=== PATIENT | male | born 1955 | race Caucasian/White ===

== ENCOUNTER → 2016-12-02 | Outpatient (CLI) | payer OTHER ==
[~2016-12-02] MED LIST: AMLODIPINE BESYL5 MG PO; ASPIRIN81 M2 PO; CLOPIDOGREL BIS75 MG PO; GABAPENTIN600 MG PO; LIPITOR40 MG PO; METOPROLOL TAR25 MG PO; MS CONTIN30 MG PO; PERCOCET; PERCOCET10 PO; PRILOSEC PO; SOTALOL AF80 M1 PO; XARELTO20 MG PO
[2016-12-02 11:21] LABS: HEMATOCRIT 38.5 % (38.0-50.0); HEMOGLOBIN 12.4 gm/dL (13.0-16.0); MEAN CELL VOLUME 87.4 FL (83-96); MEAN CORPUSCULAR HEMOGLOBIN 28.2 PG (28-34); MEAN CORPUSCULAR HGB CONC 32.2 g/dL (30-36); MEAN PLATELET VOLUME 9.7 FL (6.5-11.5); RED BLOOD COUNT 4.41 X10e (3.90-5.60); RED CELL DISTRIBUTION WIDTH 14.2 % (11.0-15.5)
[2016-12-02 11:26] LABS: URINE APPEARANCE CLEAR; URINE BILIRUBIN NEG (NEG); URINE BLOOD NEG (NEG); URINE COLOR YELLOW; URINE GLUCOSE NEG (NEG); URINE KETONE NEG (NEG); URINE LEUKOCYTE ESTERASE NEG (NEG); URINE NITRATE NEG (NEG); URINE PROTEIN NEG (NEG); URINE SPECIFIC GRAVITY 1.014 (1.003-1.035); URINE UROBILINOGEN 0.2 MG/DL (NEG)
[2016-12-02 11:45] LABS: CULTURE INDICATED? NO; URINE SOURCE CLEAN CATCH
[2016-12-02 12:15] LABS: CALCIUM SERUM 9.3 mg/dL (8.4-10.2); GLOM FILT RATE Estimated 79.8 mL/min (>60)
== END | disposition home or self-care (01) ==
LOC: CAMB 10:15
PROVIDERS: Orthopaedic Surgery
DX: Z01.812 Encounter for preprocedural laboratory examination (principal); M19.071 Primary osteoarthritis, right ankle and foot
CPT/HCPCS: 36415; 80048; 81003; 85027; 87070

== ENCOUNTER 2017-02-10 09:42 | Inpatient (IN) | payer OTHER ==
--- NOTE | ~2017-02-10 | HP ---
Unit #: [id number] #: [id number] Patient: ABIGAIL SOTO [id number] [address] [address] [id number] MR#: [id number] NAME: ABIGAIL SOTO. ROOM: 453 Age: 61 Sex: M Admission Date: 02/10/2017 : 1955 Attending Physician: Alexis Gomez M.D. Primary Care Physician: Generic Doctor Not In System HISTORY AND PHYSICAL CHIEF COMPLAINT Right ankle pain. HISTORY OF PRESENT ILLNESS The patient is a 61-year-old male who has undergone previous left total ankle arthroplasty one year ago. He now has ongoing right ankle pain and deformity. He has failed conservative care to include anti-inflammatory medications, bracing, injections and skilled nursing narcotics. PAST MEDICAL HISTORY Remarkable for: 1. Chronic pain requiring skilled nursing use of morphine. 2. Alcohol abuse. 3. Hypertension. 4. Arthritis. 5. Hyperlipidemia. 6. Lower back pain. 7. Atrial fibrillation. PAST SURGICAL HISTORY 1. Lower back surgery. 2. Stent placement. 3. Hypertension. 4. Hip replacement. HOME MEDICATIONS 1. Aspirin. 2. Atorvastatin. 3. Plavix. 4. Diltiazem. 5. Gabapentin. 6. Morphine. 7. Sulfate ER. 8. Percocet. 9. Sotalol. 10. Warfarin. ALLERGIES Penicillin. FAMILY HISTORY Arthritis, stroke. SOCIAL HISTORY Unit #: [id number] #: [id number] Patient: ABIGAIL SOTO The patient does have a past history of alcohol abuse but he denies drinking now. He is a current everyday smoker, smoking less than a pack per day. REVIEW OF SYSTEMS Unremarkable. PHYSICAL EXAMINATION GENERAL: This is a well developed, well nourished male in no acute distress. Height 6 foot tall, weight 223 pounds. PHARYNX: Clear. NECK: Supple without masses. HEART: Regular sinus rhythm without murmurs or gallops. LUNGS: Clear. ABDOMEN: Soft and nontender without masses or organomegaly. Evaluation of the right foot shows a normal arch. The right heel is in 20 degrees of valgus. Right ankle dorsiflexion is to neutral. Plantar flexion to 40 degrees. Subtalar motion normal. First MTP joint motion is normal. Pulses are normal. Sensation is normal. Motor exam is normal. Standing x-rays of the right ankle show 25 degrees of contained ankle valgus. 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 PLAN The patient will undergo right ankle replacement using a Inocente Talaris implant with medializing calcaneal osteotomy. This procedure was described in detail along with risks of bleeding, infection, nerve damage, need for further surgery in the future, prolonged recovery time, deep venous thrombosis, pulmonary embolism, anesthetic complications, loosening of the prosthesis, infection of the prosthesis, need for multiple revision surgeries in the future. He understands the above risks and agrees to proceed. Dictated by Piper Lopez/pam TD: 02/09/2017 09:08 JOB #: [id number] HISTORY AND PHYSICAL Page 1 of 1 X rAun Gomez MD HISTORY AND PHYSICAL
--- NOTE | ~2017-02-10 | OR ---
Unit #: [id number] #: [id number] Patient: ABIGAIL SOTO [id number] [address] [place], [place] [address] [id number] MR#: [id number] NAME: ABIGAIL SOTO. ROOM: 453 Date of Procedure: 02/10/2017 Admission Date: 02/10/2017 Surgeon: Alexis Gomez M.D. : 1955 Attending Physician: Alexis Gomez M.D. 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 PROCEDURE PERFORMED 1. Right total ankle arthroplasty (11433). 2. Right medialized and calcaneal osteotomy (34467). 3. Right dorsal opening wedge osteotomy of medial cuneiform (Cotton procedure) (60256). M[employer]AGE [employer]ANCH MANAGER MD Jazmin and REMIGIO Gonzalez. ANESTHESIA Popliteal saphenous block and general. INDICATIONS FOR SURGERY The patient is a 61-year-old male with severe right ankle arthritis secondary to tibiotalar valgus. He has failed conservative care with injections, bracing, and anti-inflammatory medication. He requires long-term narcotics for pain control. He has pain with activities of daily living. Risks and benefits of fusion versus replacement have been discussed and he elects to proceed with total ankle arthroplasty. DESCRIPTION OF PROCEDURE The patient underwent right leg popliteal saphenous block. He was taken to the operating room and placed in a supine position and general anesthetic was induced. The right leg was identified as the correct operative extremity during the time-out procedure. The IV antibiotic protocol was followed. The right leg was then prepped and draped in the usual sterile fashion. The leg was exsanguinated and the thigh tourniquet inflated to 300 mmHg. A 12 cm anterior longitudinal incision was made over the ankle. The subcutaneous tissue was carefully divided. The superficial peroneal nerve was identified and preserved. The extensor retinaculum was opened. The interval between the extensor hallucis longus and anterior tibial tendon was opened and developed. The neurovascular bundle was retracted laterally. The joint was exposed with subperiosteal dissection. The power osteotome was used to remove the large anterior distal tibial Unit #: [id number] #: [id number] Patient: ABIGAIL SOTO osteophyte. The Inocente Talaris Total Ankle Replacement System was utilized for definitive ankle replacement. The tibial alignment guide was pinned to the tibial tuberosity aligned with the tibia and then pinned to the distal tibia. The rotation was set and an 8 mm resection was set. The tibia and talus were both sized at #2. The #2 cutting block was then applied and the 3 drill holes were placed in the tibia medially and laterally and the tibial cut was made. I thought there was insufficient amount of bone removed from the tibia, therefore, the cutting guide was adjusted an additional 2 mm of bone was taken from the distal tibia. The cutting guide was then removed and the anterior half of the distal tibial cut bone was removed in a piecemeal fashion. The talar pin setting guide was then used and pinned into place. The posterior talar cutting guide was applied and the posterior talar cut was made. The anterior talar guide was then applied and pinned into place. The anterior talar neck was milled. Finally, the lateral talar cutting guide was applied and pinned into place. The saw was used and the lateral talar cut was made. The wound was copiously irrigated and all bony debris was removed and care was taken to ensure that the posterior half of the distal tibial cut bone was removed. The talar trial fit appropriately. The #2 tibial trial fit appropriately and an 11 mm spacer afforded satisfactory tightening of the medial structures. A lateral release was performed of the lateral collateral ligaments by subperiosteally exposed in the distal tibia. Care was taken to ensure that the medial and lateral gutters were free of all synovitic and osteophytic tissue. The 3 drill holes were then placed in the distal tibia and connected with the box osteotome and rasp. The wound was copiously irrigated. The final #2 Inocente Talaris talar implant was then impacted into place. An 11 mm poly was fixated to a size 2 tibial implant. The tibial implant was then impacted into place. Intraoperative C-arm fluoroscopy documented satisfactory component position. A lateral calcaneal body osteotomy was then required to continue correction of the calcaneal valgus. A 5 cm oblique incision was made just posterior to the peroneal tendons overlying the lateral calcaneal body. The calcaneus was exposed subperiosteally. Baby Hohmann retractors were placed and the saw was used to make the calcaneal osteotomy cut. The medial soft tissues were spread with the laminar veneer jointer. The calcaneal tuberosity was displaced medially 1 cm and fixated with two 4.0 mm diameter Synthes cannulated screws placed from posterior to anterior, excellent fixation was achieved. Because of my concern with residual forefoot varus of 10 degrees a Cotton procedure was required. A dorsal longitudinal incision was made over the medial cuneiform. The extensor hallucis longus tendon was retracted. The medial cuneiform was exposed subperiosteally. A 0.062-inch diameter smooth K-wire was drilled through the middle of the middle cuneiform in line with the first tarsometatarsal joint. Pin position was checked with the C-arm fluoroscopy. The pin was then used as a guide for the microsagittal saw during osteotomy of the medial cuneiform from dorsal to plantar. The osteotome was used to open the osteotomy dorsally and a 6.0 mm wide [place] cotton wedge allograft was impacted into place. Excellent fit was achieved and the deformity was corrected nicely. The osteotomy was fixated with a 4.0 mm diameter Synthes screw placed from dorsal distal to plantar proximal. Unit #: [id number] #: [id number] Patient: ABIGAIL SOTO All wounds were copiously irrigated. A 3-minute dilute Betadine wash was applied to the ankle. The keel hole of the tibial implant was bone grafted with cut tibia taken earlier in the case and impacted into place. The lavaged Betadine was then washed out with normal saline. The joint capsule was closed with 2-0 Vicryl [id number] sutures. The extensor retinaculum was closed with 2-0 Vicryl [id number] sutures. Subcutaneous tissue was closed with 3-0 Vicryl and the skin was closed with 3-0 nylon horizontal mattress sutures. Xeroform gauze, dressing, sponges, Webril, and a posterior fiberglass splint were applied. The patient was then transported to the recovery room in stable condition. ESTIMATED BLOOD LOSS Minimal. COMPLICATIONS None. SPECIMENS None. TOURNIQUET TIME 65 minutes. Dictated byPiper Lemos/noah CULLEN: 02/10/2017 15:56 TD: 02/11/2017 06:00 JOB #: [id number] OPERATIVE REPORT Page 1 of 1 X Arun Gomez MD PROCEDURE OPERATIVE NOTE
[~2017-02-10 09:42] MED LIST changes: -PERCOCET10 PO
[2017-02-10 10:28] LABS: MEAN CELL VOLUME 86.5 FL (83-96); MEAN CORPUSCULAR HEMOGLOBIN 28.2 PG (28-34); MEAN CORPUSCULAR HGB CONC 32.6 g/dL (30-36); MEAN PLATELET VOLUME 9.2 FL (6.5-11.5); RED BLOOD COUNT 4.98 X10e (3.90-5.60); WHITE BLOOD COUNT 9.3 X10e3 (4.0-10.5)
[2017-02-10 10:47] LABS: URINE APPEARANCE CLEAR; URINE BILIRUBIN NEG (NEG); URINE BLOOD NEG (NEG); URINE COLOR YELLOW; URINE GLUCOSE NEG (NEG); URINE KETONE NEG (NEG); URINE LEUKOCYTE ESTERASE NEG (NEG); URINE NITRATE NEG (NEG); URINE PH 5.5 (5-8); URINE PROTEIN TRACE (NEG); URINE SPECIFIC GRAVITY 1.024 (1.003-1.035)
[2017-02-10 10:51] LABS: BUN/CREATININE RATIO 21.25; CALCIUM SERUM 9.1 mg/dL (8.4-10.2); CREATININE SERUM 0.8 mg/dL (0.6-1.4); GLOM FILT RATE Estimated 95.1 mL/min (>60); POTASSIUM 4.3 mmol/L (3.5-5.1)
[2017-02-10 10:57] LABS: CULTURE INDICATED? NO
[2017-02-11 03:17] LABS: HEMATOCRIT 35.6 % (38.0-50.0)
[2017-02-11 03:21] LABS: HEMOGLOBIN 11.5 gm/dL (13.0-16.0)
[2017-02-12 03:02] LABS: HEMATOCRIT 32.8 % (38.0-50.0); HEMOGLOBIN 10.4 gm/dL (13.0-16.0)
[2017-02-12] MEDS ORDERED: PERCOCET10 PO (13:40)
== END 2017-02-12 16:38 | disposition home or self-care (01) | DRG 470 ==
LOC: CSUR 09:42 → CPACUOF 10:22 → CSUR 10:22 → C4B 13:45 → CPACUOF 13:45 → C4B 15:15 → CPACUOF 15:15 → C4B 02-12 16:38
PROVIDERS: Orthopaedic Surgery
PROC: 0QBL0ZZ Excision of Right Tarsal, Open Approach (ICD-10-PCS; 2017-02-10)
PROC: 0QH Lower Bones, Insertion (ICD-10-PCS; 2017-02-10)
PROC: 0QHL04Z Insertion of Internal Fixation Device into Right Tarsal, Open Approach (ICD-10-PCS; 2017-02-10)
PROC: 0SRF0JZ Replacement of Right Ankle Joint with Synthetic Substitute, Open Approach (ICD-10-PCS; principal; 2017-02-10 12:30)
PROC: 0QBN0ZZ Excision of Right Metatarsal, Open Approach (ICD-10-PCS; 2017-02-10 12:30)
DX: M19.071 Primary osteoarthritis, right ankle and foot (principal); I10 Essential (primary) hypertension; M21.071 Valgus deformity, not elsewhere classified, right ankle; K21.9 Gastro-esophageal reflux disease without esophagitis; I48.91 Unspecified atrial fibrillation; E78.5 Hyperlipidemia, unspecified; I25.10 Atherosclerotic heart disease of native coronary artery without angina pectoris; Z95.5 Presence of coronary angioplasty implant and graft; Z96.641 Presence of right artificial hip joint; Z88.0 Allergy status to penicillin; Z82.61 Family history of arthritis; Z82.3 Family history of stroke; F17.210 Nicotine dependence, cigarettes, uncomplicated; Z96.662 Presence of left artificial ankle joint
CPT/HCPCS: 80048; 81003; 85014; 85018; 85027; 94760; 97116; 97161; 97530; C1713; C1776; G8978-GP; G8979-GP; G8980-GP; J2250; J2795; J3010; J3370